=== PATIENT | female | born 1980 | race Caucasian/White ===

== ENCOUNTER 2022-07-14 09:04 | Outpatient (CLI) | payer OTHER | END 2022-07-14 09:16 | disposition home or self-care (01) | LOC: RAD 09:04 | PROVIDERS: ATTEND Physical Medicine & Rehabilitation | DX: M54.59 Other low back pain (principal) ==

== ENCOUNTER 2022-10-31 08:30 | Outpatient (CLI) | payer OTHER | END 2022-10-31 08:57 | disposition home or self-care (01) | LOC: MRI 08:30 | PROVIDERS: ATTEND Internal Medicine | DX: Z12.31 Encounter for screening mammogram for malignant neoplasm of breast (principal); N60.11 Diffuse cystic mastopathy of right breast; N60.12 Diffuse cystic mastopathy of left breast ==